=== PATIENT | male | born 1970 | race Caucasian/White ===

== ENCOUNTER 2017-10-23 19:30 | Emergency (ER) | payer MEDICAID, SELFPAY ==
[2017-10-23 19:34] VITALS: BP 123/89; PULSE 63; RESP 16; TEMP 35.9; O2SAT 96; BMI 32.8
--- NOTE | 2017-10-23 19:36 | EKG12_ITS ---
Test Reason : CP Blood Pressure : / mmHG Vent. Rate : 100 BPM Atrial Rate : 100 BPM P-R Int : 164 ms QRS Dur : 082 ms QT Int : 322 ms P-R-T Axes : 007 -14 062 degrees QTc Int : 415 ms Normal sinus rhythm Normal ECG Confirmed by CALLI PHAM, EM ([id number]), order editor JUANA JACOB ([id number] on 10/27/2017 3:14:22 PM Referred By: IDANIA/GLENNA Confirmed By:EM MCCURDY MD
--- NOTE | 2017-10-23 19:40 | RAD_ITS ---
XR Chest 1 View INDICATION: CHEST PAIN COMPARISON: None FINDINGS: Heart size and pulmonary vascularity are within normal limits. The lungs are clear without evidence of airspace consolidation or pleural effusion. The osseous structures are grossly unremarkable. RAD/Chest 1 View (Portable) IMPRESSION: No radiographic evidence of acute intrathoracic disease. at 1954 Reported and signed by: Mine Ponce MD Electronically Signed: Mine Ponce MD at 19:53 EDT Tel , Service support ,
--- NOTE | 2017-10-23 19:40 | NURSING ---
NO OLD EKG'S IN MUSE
[2017-10-23 20:00] VITALS: O2SAT 95
[2017-10-23 20:23] VITALS: BP 106/74; BP 115/82; BP 118/74; PULSE 112; PULSE 90; PULSE 96
[2017-10-23 20:25] LABS: Absolute Lymphocyte Count 3.71 X10^3/ul (0.83-4.51); Absolute Neutrophil Count 11.9 X10^3/uL (2.0-7.7); Basophil# 0.02 X10^3/uL; Basophil% 0.1 % (0-1); Eosinophil# 0.18 X10^3/uL; Eosinophils% 1.1 % (0-5); Hematocrit 42.7 % (40-54); Hemoglobin 13.6 g/dl (13.0-16.5); Lymphocyte # 3.71 X10^3/ul (4.0); Lymphocyte % 21.7 % (19-41); Mean Corp Hgb Conc 31.9 g/gl (32-36); Mean Corpuscular Hgb 25.4 pg (27.0-32.0); Mean Corpuscular Volume 79.8 fL (80-94); Mean Platelet Vol. 11.1 fl (6.2-12.0); Monocyte# 1.04 X10^3/uL; Monocyte% 6.1 % (0-10); Neutrophil # 11.94 X10^3/uL (2.7-7.7); Neutrophil % 69.9 % (47-70); Platelet Count 271 K/mm3 (150-450); RBC Distribution Width CV 15.6 % (11.6-14.6); RBC Distribution Width SD 44.8 fl (35.1-43.9); Red Blood Count 5.35 M/mm3 (4.6-6.2); White Blood Count 17.1 K/mm3 (4.4-11.0)
[2017-10-23] MEDS: 0.9% Normal Saline 1,000 ML 999 ML IV ×2 (20:26→21:38)
[2017-10-23 20:39] LABS: POSITIVE COUNT NO; POSITIVE DIFFERENTIAL NO; POSITIVE MORPHOLOGY NO
[2017-10-23 20:40] LABS: Anion Gap 6 (5-15); BUN 25 mg/dL (7-18); Calcium,Total 9.6 mg/dL (8.5-10.1); Chloride 103 mmol/L (98-107); Creatinine, Serum 1.78 mg/dL (0.70-1.30); EST Glomerular Filtration Rate 44 mL/min (>60); Est Glom Filt Rate - Afr Amer 53 mL/min (>60); Estimated Creatinine Clearance 63.66 ml/min; Glucose 101 mg/dL (74-106); Potassium 4.9 mmol/L (3.5-5.1); Sodium Level 134 mmol/L (136-145)
[2017-10-23 21:03] VITALS: BP 108/74; PULSE 108; RESP 14; O2SAT 98
--- NOTE | 2017-10-23 21:29 | ED.VISSUMM ---
- ER Visit Summary Date of Service: 10/23/17 Chief Complaint: Chest pain nausea vomiting and dizziness. History of Present Illness: The patient is a 47 M Patient states that he had a onset of nausea and vomiting today. He states that he has had up to 7 episodes of nonbloody nonbilious emesis. Patient states that following that he started to feel dizzy and lightheaded as well as diaphoretic. Patient states that during that time. He has had intermittent burning chest discomfort that he describes as a feeling similar to heartburn. He does endorse that he is having some mild shortness of breath. Patient has a history of hypertension high cholesterol. Patient states that he has had 2 cardiac catheterizations, one being within the last year, and is never had any sort of intervention. He denies any DVT or PE risk factors. Denies any dissection or aneurysmal risk factors. Physical Examination: Vital signs are within normal limits, patient is afebrile. General: Patient is well-nourished well-developed and in no acute distress. Head: Normocephalic, atraumatic Eyes: Pupils equal round and reactive bilaterally, extra occular motion intact bialterally ENT: Moist mucous membranes Neck: Supple, no lymphadenopathy, no JVD, no meningismus CVS: Heart regular rate and rhythm, no murmurs, rubs or gallops, radial pulses 2+ bilaterally Resp: Respirations nondistressed, lung sounds clear bilaterally Abdomen: Soft, nontender, nondistended, no palpable masses, normal bowel sounds Back: Nontender Extremities: Nontender, atraumatic, active full range of motion, no peripheral edema Skin: warm, no rashes, no petechia Neuro: Alert and oriented x 4, CN 2-12 intact, no lateralizing neurological defecits Psyc: Normal affect Test Results: Sinus rhythm of [address] segments, normal T waves, no evidence of right ventricular strain. CBC unremarkable, chemistry shows elevation of creatinine 1.7, troponin negative, chest x-ray shows no acute pathology, orthostatic vital signs showed elevation of the patient's heart rate on standing. Emergency Department Course and Treatment: Patient presented secondary to nausea vomiting dizziness and burning chest discomfort. His workup was found to be negative except for he was orthostatic positive and had an elevated creatinine which could be consistent with dehydration. Patient's heart score is low risk at this point, he had improvement with GI cocktail Zofran 2 L normal saline. At this point I believe be safe for discharge. He will follow up with primary care. Disposition: Discharge Impression: 1. Nausea and vomiting This note was generated with [employer] dictation software. It may contain incorrect words, spelling, and punctuation that were not noted in review of the chart prior to signing ED Disposition - Plan for ED Patient: Disposition: Home or Assisted Living Chief Complaint: Chest Pain Diagnosis: Dehydration Instructions: ED Dehydration Prescriptions: Ondansetron [Zofran Odt] 4 mg PO Q8H PRN PRN #10 tab PRN Reason: Nausea Referrals: [facility] [place] Doctor,Out of [Primary Care Provider] - 3-5 Days
[2017-10-23 21:40] VITALS: BP 123/87; PULSE 79; RESP 14; O2SAT 97
== END 2017-10-23 22:01 | disposition home or self-care (01) ==
PROVIDERS: Emergency Provider Emergency Medicine
DX: R11.2 Nausea with vomiting, unspecified (principal); R07.89 Other chest pain; R61 Generalized hyperhidrosis; R42 Dizziness and giddiness; R68.83 Chills (without fever); R06.00 Dyspnea, unspecified; I10 Essential (primary) hypertension; E78.00 Pure hypercholesterolemia, unspecified; Z79.82 Long term (current) use of aspirin; Z79.899 Other long term (current) drug therapy; Z72.0 Tobacco use
CPT/HCPCS: 71045; 80048; 84484; 85025; 93005; 96360; 96361; 99285; A4216